=== PATIENT | female | born 1985 | race Two or more races ===

== ENCOUNTER 2019-05-16 10:06 | Day surgery (SDC) | payer OTHER | END 2019-05-16 15:05 | disposition home or self-care (01) | LOC: AMB-ENDOS 10:06 | DX: D12.2 Benign neoplasm of ascending colon (principal); Z12.11 Encounter for screening for malignant neoplasm of colon ==

== ENCOUNTER 2021-01-11 11:00 | Inpatient (IN) | payer OTHER ==
[~2021-01-11] VITALS: Ht 165.1 cm; Wt 78.5 kg
[2021-01-11] MEDS ORDERED: ZYRTEC10 M3 PO (13:13)
== END 2021-01-18 10:59 | disposition home or self-care (01) | DRG 358 ==
LOC: O/R 01-14 05:45 → OB/GYN 01-14 10:15
PROVIDERS: ADMIT Obstetrics & Gynecology Gynecologic Oncology; ATTEND Obstetrics & Gynecology Gynecologic Oncology
PROC: 07BD0ZX Excision of Aortic Lymphatic, Open Approach, Diagnostic (ICD-10-PCS; 2021-01-14)
PROC: 0UT10ZZ Resection of Left Ovary, Open Approach (ICD-10-PCS; 2021-01-14)
PROC: 0UT60ZZ Resection of Left Fallopian Tube, Open Approach (ICD-10-PCS; 2021-01-14)
PROC: 0US00ZZ Reposition Right Ovary, Open Approach (ICD-10-PCS; 2021-01-14)
PROC: 0WBH0ZZ Excision of Retroperitoneum, Open Approach (ICD-10-PCS; principal; 2021-01-14 10:15)
PROC: 0UTC0ZZ Resection of Cervix, Open Approach (ICD-10-PCS; 2021-01-14 10:15)
DX: D20.0 Benign neoplasm of soft tissue of retroperitoneum (principal); D27.1 Benign neoplasm of left ovary; D27.0 Benign neoplasm of right ovary; D36.0 Benign neoplasm of lymph nodes; D26.0 Other benign neoplasm of cervix uteri; R19.00 Intra-abdominal and pelvic swelling, mass and lump, unspecified site

== ENCOUNTER 2021-09-28 09:45 | Inpatient (IN) | payer OTHER ==
[~2021-09-28] VITALS: Ht 165.1 cm; Wt 74.8 kg
[~2021-09-28 09:45] MED LIST: ZYRTEC10 M3 PO
== END 2021-10-01 10:13 | disposition home or self-care (01) | DRG 743 ==
LOC: O/R 09-30 06:20 → SURG 09-30 09:45 → OB/GYN 09-30 15:00
PROVIDERS: ADMIT Obstetrics & Gynecology Gynecologic Oncology; ATTEND Obstetrics & Gynecology Gynecologic Oncology
PROC: 0UT04ZZ Resection of Right Ovary, Percutaneous Endoscopic Approach (ICD-10-PCS; 2021-09-30)
PROC: 0DBW4ZZ Excision of Peritoneum, Percutaneous Endoscopic Approach (ICD-10-PCS; 2021-09-30)
PROC: 0DNU4ZZ Release Omentum, Percutaneous Endoscopic Approach (ICD-10-PCS; 2021-09-30)
PROC: 0UT54ZZ Resection of Right Fallopian Tube, Percutaneous Endoscopic Approach (ICD-10-PCS; principal; 2021-09-30 12:45)
DX: N83.11 Corpus luteum cyst of right ovary (principal); Z20.822 Contact with and (suspected) exposure to COVID-19